=== PATIENT | male | born 1930 | race Caucasian/White ===

== ENCOUNTER → 2016-12-19 | Outpatient (CLI) | payer OTHER ==
[~2016-12-19] MED LIST: AMLO5TAB2 PO; ASPI-770 PO; CLOP75TA22 PO; HYDR-3240 PO; HYDR25TA6 PO; LABE100T3 PO; LISI40TA PO; LOVA40TA2 PO; PARO10TA3 PO; POTA10TA11 PO; PRIM50TA PO; PROP20TA PO
== END | disposition home or self-care (01) ==
LOC: CVU 14:10
PROVIDERS: ATTEND Surgery
DX: Z48.89 Encounter for other specified surgical aftercare (principal); I65.21 Occlusion and stenosis of right carotid artery; I77.1 Stricture of artery; I10 Essential (primary) hypertension; I25.10 Atherosclerotic heart disease of native coronary artery without angina pectoris; Z87.891 Personal history of nicotine dependence; Z86.73 Personal history of transient ischemic attack (TIA), and cerebral infarction without residual deficits
CPT/HCPCS: 93880

== ENCOUNTER 2017-04-28 16:54 | Emergency (ER) | payer OTHER ==
[~2017-04-28] VITALS: Ht 182.9 cm; Wt 88.8 kg
[~2017-04-28 16:54] MED LIST changes: -CLOP75TA22 PO; +CLOP75TA52 PO
[2017-04-28 17:12] VITALS: BP 121/53
== END 2017-04-28 19:27 | disposition home or self-care (01) ==
LOC: ED 19:15
DX: S62.350A Nondisplaced fracture of shaft of second metacarpal bone, right hand, initial encounter for closed fracture (principal); E78.5 Hyperlipidemia, unspecified; I10 Essential (primary) hypertension; M19.90 Unspecified osteoarthritis, unspecified site; Z95.1 Presence of aortocoronary bypass graft; Z98.890 Other specified postprocedural states; W01.0XXA Fall on same level from slipping, tripping and stumbling without subsequent striking against object, initial encounter; Y93.89 Activity, other specified; Y99.8 Other external cause status; Y92.094 Garage of other non-institutional residence as the place of occurrence of the external cause
CPT/HCPCS: 99284

== ENCOUNTER → 2017-07-26 | Outpatient (CLI) | payer OTHER | END | disposition home or self-care (01) | LOC: CVU 14:42 | PROVIDERS: ATTEND Surgery | DX: I65.23 Occlusion and stenosis of bilateral carotid arteries (principal) | CPT/HCPCS: 93880 ==